=== PATIENT | male | born 1975 | race Caucasian/White ===

== ENCOUNTER 2017-11-16 22:06 | Emergency (ER) | payer MEDICAID ==
[~2017-11-16] VITALS: Ht 170.2 cm; Wt 116.6 kg
[2017-11-16 22:11] VITALS: Ht 170.2 cm; Wt 116.6 kg
[2017-11-17 01:45] VITALS: BP 149/95
== END 2017-11-17 01:45 | disposition home or self-care (01) ==
LOC: ED 22:06
DX: M10.9 Gout, unspecified (principal); F17.210 Nicotine dependence, cigarettes, uncomplicated; Z71.6 Tobacco abuse counseling; Z86.73 Personal history of transient ischemic attack (TIA), and cerebral infarction without residual deficits
CPT/HCPCS: 99406; Q0092

== ENCOUNTER 2019-03-10 00:10 | Emergency (ER) | payer OTHER ==
[~2019-03-10] VITALS: Ht 172.7 cm; Wt 113.4 kg
[2019-03-10 00:29] VITALS: Ht 172.7 cm; Wt 113.4 kg
[2019-03-10 01:50] VITALS: BP 107/74
== END 2019-03-10 01:50 | disposition home or self-care (01) ==
LOC: ED 00:10
DX: M10.9 Gout, unspecified (principal); Z86.73 Personal history of transient ischemic attack (TIA), and cerebral infarction without residual deficits
CPT/HCPCS: J1885

== ENCOUNTER 2019-03-13 18:15 | Emergency (ER) | payer OTHER ==
[~2019-03-13] VITALS: Ht 172.7 cm; Wt 105.7 kg
[2019-03-13 18:29] VITALS: Ht 172.7 cm; Wt 105.7 kg
[2019-03-14 00:20] LABS: APPEARANCE FLUID CLOUDY; COLOR FLUID YELLOW; LYMPHOCYTE FLUID 8 %; MONOCYTE FLUID 20 %; RBC FLUID 2300 /cumm; SOURCE FLUID SYNOVIAL FLUID; WBC FLUID 2403 /cumm
[2019-03-14 00:53] VITALS: BP 128/94
== END 2019-03-14 00:53 | disposition home or self-care (01) ==
LOC: ED 18:15
PROVIDERS: Emergency Medicine
DX: M10.062 Idiopathic gout, left knee (principal); Z86.73 Personal history of transient ischemic attack (TIA), and cerebral infarction without residual deficits; F17.200 Nicotine dependence, unspecified, uncomplicated
CPT/HCPCS: 99406; J1885; J2001; J2270; J3490